=== PATIENT | female | born 1945 | race Caucasian/White ===

== ENCOUNTER 2025-03-29 13:33 | Outpatient (AMB) | payer MEDICARE, SELFPAY ==
--- NOTE | 2025-03-29 13:53 | A.PHYSOV ---
Vital Signs 03/29/25 13:55 Height 5 ft 8 in Weight 152 lb BMI 23.1 Intake Visit Reasons: NPV Tammie ref-right hip Intake Note: Patient is a 79year old female here for new patient visit. Patient was referred with history of partial right hip replacement. Patient is having hip pain and sciatica. Yard Switch Operator Required: No Allergies ciprofloxacin Allergy (Unknown, Verified 03/29/25 13:53) Unknown dexamethasone Allergy (Unknown, Verified 03/29/25 13:53) Swelling rivaroxaban (From Xarelto) Allergy (Unknown, Verified 03/29/25 13:53) blood in urine Sulfa (Sulfonamide Antibiotics) Allergy (Unknown, Verified 03/29/25 13:53) Unknown HPI Comments Details: History of Present Illness The patient is a 79 year old female presenting for evaluation of chronic right-sided pain. She has a history of a traumatic right hip fracture about seven years ago (approximately February 2018), for which she underwent a partial hip replacement. Despite the surgery and subsequent physical therapy, which she last attended a couple of years ago, the pain has not improved. The patient describes the pain as originating in her right buttock area and radiating down the leg, leading her to suspect sciatica. The pain intensity varies, but can be severe, and at times she feels as if a bone is touching a nerve. For pain management, she has used ice, Tylenol, and previously ibuprofen, but stopped ibuprofen due to being on Plavix. She has a prescription for tramadol but expressed hesitation about taking a narcotic medication. Her relevant medical history includes back issues diagnosed years ago, including a bulging disc and arthritis. She was previously seen at Orthopedics where it was determined that her hip was not the source of her pain. Following her hip surgery, she had a few follow-up appointments but was lost to follow-up after her surgeon left the practice. I reviewed the referring provider's no prior to consultation. Pain Description - Location: The pain is located in the right buttock area. - Radiation: The pain radiates down her right leg. - Quality: She describes the sensation at times as feeling like the bone is touching the nerve. - Severity: Pain is variable; it was rated as good on the day of the visit, but at other times it is severe and not relieved by anything. - Exacerbating Factors: Pain is reproduced by bending forward and lifting her right thigh. - Relieving Factors: She uses ice and Tylenol for relief. - Associated Symptoms: She reports that the muscles in her legs are tender to the touch. Results - Imaging: Previous hip x-rays performed by a sports leadership instructor were noted to be unremarkable for a hip source of pain. - Past imaging of the back from years ago showed a bulging disc and arthritis. [facility] Surgical History Hx of tonsillectomy History of hip surgery Social History Alcohol intake: current Alcohol intake frequency: does not drink Patient Tobacco Use Status: Former Tobacco user Review of Systems Narrative Review of Systems - Musculoskeletal: Reports pain in the right buttock that radiates down the right leg, as well as tenderness in her leg muscles. - Denies current back pain at rest or groin pain. - Neurological: Reports symptoms consistent with sciatica. - Psychiatric: Reports anxiety regarding undergoing an MRI. Physical Exam Exam Exam: Physical Exam - General: Patient is alert and oriented. - Musculoskeletal: Significant muscle atrophy is visible in the right hip and buttock area. - A surgical scar is present on the right hip. - There is no pain to palpation of the buttock itself. - Lumbar spine flexion elicits pain in the right buttock, while extension does not. - Active right hip flexion reproduces pain in the right hip area. - Neurological: Straight leg raise is positive on the right, causing tension behind the knee. - Sensation to light touch is symmetric in both legs. Vital Signs: BMI result Body Mass Index 23.1 Assessment & Plan Assessment & Plan (1) Lumbar radiculopathy: Code(s): M54.16 - Radiculopathy, lumbar region Category: Medical (2) Lumbar spondylosis: Code(s): M47.816 - Spondylosis without myelopathy or radiculopathy, lumbar region Category: Medical Plan Pain Management - Affect: The patient is functioning but experiences periods of severe pain. - Analgesia: She uses ice and Tylenol. - She has a prescription for tramadol but is hesitant to use it. - She cannot take ibuprofen because she is on Plavix. - Her pain level on the day of the visit was good. - Activities of Daily Living: The patient reports she is functioning despite the pain. - Aberrant Drug Related Behaviors: She expressed concern about taking tramadol because it is a narcotic, showing appropriate caution. Plan Patient was informed and verbally consented to the use of an ambient scribe for clinic note documentation during this visit. 1. Right-Sided Lower Extremity Pain, Suspected Radiculopathy The patient's symptoms are consistent with lumbar radiculopathy, given the pain radiates down her leg and is exacerbated by lumbar flexion. An x-ray of the lumbar spine will be obtained to serve as a prerequisite for an MRI. A lumbar MRI will be ordered to visualize the nerves and discs to confirm a pinched nerve. Potential treatment options discussed included physical therapy, career coach, gabapentin, and epidural steroid injections, noting that certain injections are possible despite her use of Plavix. A follow-up appointment will be scheduled after the imaging is completed to review results and discuss the treatment plan. Patient is requesting MRI of the severity of her pain. 2. Anxiety Related To Medical Procedures The patient expressed anxiety about undergoing an MRI. To accommodate this, an open MRI at [facility] will be ordered. Ativan 1 mg will be prescribed to be taken one hour prior to the procedure, with the instruction that she will need a ride. Discussion Notes I explained to the patient that her symptoms of pain radiating down her leg are more indicative of a pinched nerve in her back (radiculopathy) rather than an issue with her hip replacement. I recommended we proceed with a lumbar spine X-ray and an MRI to get a complete picture of the nerves and discs, which will help confirm the diagnosis and guide treatment. To address her expressed anxiety about the MRI, I recommended an open MRI scanner and prescribed Ativan 1mg for her to take prior to the scan, emphasizing the need to have a driver/merchandiser. We discussed potential treatments following the imaging, including physical therapy, medications like gabapentin, and injections. I reassured her that certain types of injections can be performed safely while she continues to take Plavix. The plan is for her to obtain the X-ray, after which we will order the MRI, and then she will follow up to review the results and decide on the best course of action. Patient Instructions - Please go to [facility]'s radiology department to get an X-ray of your lower back. You can walk in for this service; carry the order I provided you. - An order for an open MRI of your back will be sent to [facility]. They will contact you to schedule this appointment after it is approved by your insurance. - I have sent a prescription for Ativan 1 mg to your pharmacy. If you feel anxious before the MRI, you can take one pill one hour before the appointment. If you take this medication, you must have someone drive you to and from the appointment. - Once we have the results from your imaging, our office will contact you to schedule a follow-up visit to discuss the findings and create a treatment plan. Orders: Orders MR lumbar spine wo con Today M51.16 - Intervertebral disc disorders with radiculopathy, lumbar region XR lumbar spine 4V min Today M54.9 - Dorsalgia, unspecified Medications: New lorazepam (Ativan) 1 po, 1 hour prior to MRI 1 mg PO DAILY PRN 1 tab 0RF anxiety 1 day M47.816 - Spondylosis without myelopathy or radiculopathy, lumbar region, M54.16 - Radiculopathy, lumbar region Coding Level of Care Code Tele New Pt Level 4 (28202) Diagnoses Lumbar radiculopathy M54.16 Lumbar spondylosis M47.816
[2025-03-29 13:55] VITALS: BMI 23.1
--- OUTSIDE RECORDS SUMMARY | 2025-03-29 14:56 | XMS_ITS | Encounter Summary ---
Author Organization [facility] Address [address] [place] [address] Care Team Providers Care Drill Press Set Up Operator Name Role Phone Tiny Trujillo MD Primary Care Prov ider Encounter Details Date Type Department Care Team (Latest Contact Info) Description 03/29/2025 2:56 PM EST Hospital Encounter [facility] Xray [address] [place] [address] Dorsalgia, unspecified Social History Tobacco Use Types Packs/Day Years Used Date Smoking Tobacco: Former Cigarettes 0 Q uit: 04/13/1973 Smokeless Tobacco: Never Alcohol Use Standard Drinks/Week Comments Not Currently 0 (1 standard drink = 0.6 oz pur e alcohol) Comments No Sex and Gender Information Value Date Recorded Sex Assigned at Not on file Legal Sex Female 10:08 PM EST Gender Identity Not on file Sexual Orientation Not on file documented as of this encounter Plan of Treatment Upcoming Encounters Date Type Department Care Team (Late st Contact Info) Description 07/05/2025 10:00 AM EDT Office Visit Adult Medicine [facility] [address] [place] [phone] Tiny Trujillo MD [address] [place] [address] 08/04/2025 1:40 PM EDT Appointment Radiology Department - [address] [phone] Pending Results Name Type Priority Associated Diagnoses Date /Time XR Lumbar Spine 4+ Views Imaging Routine Dorsalgia, unspecified 03/29/2025 3:23 PM EST Scheduled Orders Name Type Priority Associated Diagnoses Orde r Schedule XR Lumbar Spine 4+ Views Imaging Routine Dorsalgia, unspecified Once for 1 Occurrences starting 03/29/2025 until 03/29/2025 documented as of this encounter Visit Diagnoses Diagnosis Dorsalgia, unspecified documented in this encounter Care Teams Drill Press Set Up Operator Relationship Specialty Start Date End Date Tiny Trujillo MD [address] [place] [id number] PCP - General 01/06/1999 documented as of this encounter
--- OUTSIDE RECORDS SUMMARY | 2025-03-29 18:07 | XMS_ITS ---
Author Name [facility] Organization Unknown History of Medication Use Medication Directions Dispensed Refills Start Date End Date Stat us cephALEXin (KEFLEX) 500 mg capsule Take 1 capsule (500 mg total) by mouth 2 (two) times daily for 7 days. 09/02/2024 active dilTIAZem CD (CARDIZEM CD) 120 mg 24 hr capsule Take 1 capsule (120 mg total) by mouth daily. 08/30/2024 active rivaroxaban (XARELTO) 20 mg tablet Take 1 tablet (20 mg total) by mouth daily. 08/30/2024 active LORazepam (ATIVAN) 0.5 mg tablet Take 1 tablet (0.5 mg total) by mouth 2 (two) times daily as needed. 07/19/2024 active SYNTHROID 137 mcg tablet Take 1 tablet (137 mcg total) by mouth daily. 07/18/2024 active hydrocortisone (ANUSOL-HC) 2.5 % rectal cream Place rectally as needed. 06/02/2024 active vit B comp no.8-hurjb-N-biotin (NEPHRO-MACIE RX;DIMITRIS-MACIE RX) 1 mg-60 mg-300 mcg tablet Take 1 tablet by mouth. active Allergies Allergen Reaction Severity Comment Documented Date Source Statu s SULFAMETHOXAZOLE-TRIMETHOP RIM HIVES 09/02/2024 [facility] active DEXAMETHASONE HIVES 01/04/2021 [facility] activ e CIPROFLOXACIN HIVES [facility] Problems Problem Status Onset Date Problem Type Date of Resoluti on Source Dysuria active EncounterDiagnosisAct [facility] Encounters Encounter Type Encounter Reason Primary Diagnosis Location Date Ambulatory Dysuria Dysuria [facility] 09/03/19 25 Care Team Organization Name Specialty Phone Email Start Date End Da te [facility] SORIN SCHUMACHER Primary Care 09/02/2024
--- OUTSIDE RECORDS SUMMARY | 2025-03-29 18:07 | XMS_ITS | Clinical Summary ---
Author Organization [address] Address [address] [place] [phone] Care Team Providers Care Senior Cost Estimator Name Role Phone Tiny Trujillo MD Primary Care Prov ider Allergies Active Allergy Reactions Criticality Noted Date Comments Ciprofloxacin Hives High 09/02/2024 Dexamethasone Hives High 01/04/2021 Sulfamethoxazole-Trimethoprim Hives High 2024 Medications dilTIAZem CD (CARDIZEM CD) 120 mg 24 hr capsule Take 1 capsule (120 mg total) by mouth daily. 08/30/2024 Active SYNTHROID 137 mcg tablet Take 1 tablet (137 mcg total) by mouth daily. 07/18/2024 Active rivaroxaban (XARELTO) 20 mg tablet Take 1 tablet (20 mg total) by mouth daily. 08/30/2024 08/31/19 26 Active vit B comp no.7-yjpff-E-bi otin (NEPHRO-MACIE RX;DIMITRIS-MACIE RX) 1 mg-60 mg-300 mcg tablet Take 1 tablet by mouth. Active hydrocortisone (ANUSOL-HC) 2.5 % rectal cream Place rectally as needed. 06/02/2024 06/02/19 26 Active Family History Medical History Relation Name Comments Cancer Father at age of 68 Cancer Mother at age of 94 Relation Name Status Comments Father Mother Social History Tobacco Use Types Packs/Day Years Used Date Smoking Tobacco: Former Cigarettes Smokeless Tobacco: Former Tobacco Cessation:Counseling Given: Not Answered Alcohol Use Standard Drinks/Week Comments Not Currently 0 (1 standard drink = 0.6 oz pur e alcohol) Comments Unknown Sex and Gender Information Value Date Recorded Sex Assigned at Not on file Legal Sex Female 10:18 AM EDT Gender Identity Not on file Sexual Orientation Not on file Last Filed Vital Signs Vital Sign Reading Time Taken Comments Blood Pressure 146/75 09/02/2024 9:26 AM EDT Pulse 68 09/02/2024 9:26 AM EDT Temperature 36.6 C (97.8 F) 09/02/2024 9:26 AM EDT Respiratory Rate 16 09/02/2024 9:26 AM EDT Oxygen Saturation 97% 09/02/2024 9:26 AM EDT Inhaled Oxygen Concentration - - Weight 71.7 kg (158 lb) 09/02/2024 9:26 AM EDT Height 171.5 cm (5' 7.5 ) 09/02/2024 9:26 AM EDT Body Mass Index 24.38 09/02/2024 9:26 AM EDT Plan of Treatment Health Maintenance Due Date Last Done Comments HIV screening 10/20/1960 Hepatitis C screening 10/20/1965 Lipid disorder screening 1987 Diabetes screening 10/20/1992 Osteoporosis screening (bone density) 10/20/2012 RSV Immunization (1 - 1-dose 75+ series) 10/20/2022 Influenza vaccine 11/11/2024 02/08/2024, , 01/17/2022, Additional history exists Covid-19 vaccine series ( season) 2024 Tetanus adult (Td q 10,TDAP once) 12/24/2026 12/24/2016, 10/13/2014 Pneumococcal Vaccine (50+ years) Completed 03/17/2017, 07/04/2015 Shingles vaccine (Shingrix) Completed 09/11, 08/30/2021, 04/01/2021 Breast cancer screening Discontinued 07/29/2024, 07/29 Cervical cancer screening Discontinued Colon cancer screening, Colonoscopy Discontinued Meningococcal B Vaccine Aged Out No l onger eligible based on patient's age to complete this topic Meningococcal Vaccine Aged Out No karon mark anthony eligible based on patient's age to complete this topic Insurance [facility]GD Care Teams Senior Cost Estimator Relationship Specialty Start Date End Date Tiny Trujillo MD [address] [place] [address] [place] [address] PCP - General Internal Medicine 09/02/24
--- OUTSIDE RECORDS SUMMARY | 2025-03-29 18:08 | XMS_ITS | Clinical Summary ---
Author Organization [facility] [address] Address [address] [place] [address] Phone Care Team Providers Care Cigarette Vendor Name Role Phone Tiny Trujillo MD Primary Care Prov ider Allergies Active Allergy Reactions Criticality Noted Date Comments Ciprofloxacin-Hydrocortisone Hives Low 014 Dexamethasone Swelling 01/04/2021 Sulfa (Sulfonamide Antibiotics) Rash 06/12 Rivaroxaban 01/24/2025 Blood in urine Medications multivit-min/ir on/folic acid/K (ADULTS MULTIVITAMIN ORAL) Take by mouth. Activ e calcium 26/magnesium 15/zinc (CALCIUM-MAGNES IUM-ZINC COMPLEX ORAL) Take by mouth. A ctive LORazepam (ATIVAN) 0.5 mg tablet Take 1 tablet (0.5 mg total) by mouth 2 (two) times a day if needed for anxiety. Max Daily Amount: 1 mg 30 tablet 09/28/19 25 Active BIOTIN ORAL Take by mouth 1 (one) time each day. Active traMADoL (ULTRAM) 50 mg tablet Take 1 tablet (50 mg total) by mouth 3 (three) times a day if needed for moderate pain. Max Daily Amount: 150 mg 30 tablet 01/11/20 25 Active Additional Information Patient not taking.Reason: pt stopped, Reported on 02/27/2025 cholecalciferol , vitamin D3, (VITAMIN D3 ORAL) Take by mouth 1 (one) time each day. Active dilTIAZem CD (CARDIZEM CD) 120 mg 24 hr capsuleIndicati ons:Paroxysmal atrial fibrillation (CMS/HCC V24, CMS/HCC V28) Take 1 capsule (120 mg total) by mouth 1 (one) time each day. 90 capsule 3 01/26/20 25 Active clopidogreL (PLAVIX) 75 mg tablet Take 1 tablet (75 mg total) by mouth 1 (one) time each day. 90 each 3 03/03/20 25 026 Active aspirin 81 mg EC tablet Take 1 tablet (81 mg total) by mouth 1 (one) time each day. 03/03/20 25 Active levothyroxine (SYNTHROID, LEVOTHROID) 125 mcg tablet TAKE 1 TABLET BY MOUTH ONCE DAILY BEFORE BREAKFAST 100 tablet 2 03/22/20 25 Active levothyroxine (SYNTHROID, LEVOTHROID) 125 mcg tablet Take 1 tablet (125 mcg total) by mouth 1 (one) time each day before breakfast. 90 each 1 01/11/20 25 025 Discontinued Active Problems Problem Noted Date Diagnosed Date Coronary artery calcification 02/27/2025 Assessment & Plan (02/27/2025 12:52 PM EST): See plan above. Ideally, I would at least like to start baby aspirin not just for this but also in preparation for Watchman procedure-I have reached out to EP- awaiting callback. Gross hematuria 11/11/2024 Elevated blood pressure reading 08/30/2024 Pure hypercholesterolemia 08/30/2024 Assessment & Plan (02/27/2025 12:52 PM EST): See plan above. Orders: Lipid panel; Future New onset atrial fibrillation 08/24/2024 Assessment & Plan (02/27/2025 12:52 PM EST): Would like to initiate DAPT in preparation for Watchman procedure to make sure she tolerates it from a hematuria standpoint. Furthermore I have reached out to EP as above. Currently in sinus rhythm. Continue current diltiazem for rate control. 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 Cardiology [facility] [address] [facility] [address] [place] [phone] Coco Barber MD 02/27/2025 10:20 AM EST Office Visit [facility] Cardiology [facility] [address] [facility] [address] [place] [phone] Coco Barber MD Paroxysmal atrial fibrillation (CMS/HCC V24, CMS/HCC V28) (Primary Dx); Pure hypercholesterolemia ; Coronary artery calcification 02/24/2025 Telephone Adult Medicine [facility] [address] [place] [phone] Tiny Trujillo MD 02/16/2025 10:00 AM EST Consult Orthopedic Surgery - [place] [address] [facility] [address] [place] [phone] Laya Begum MD Right hip pain (Primary Dx); Sciatica of right side 02/08/2025 Results Follow-Up Adult Medicine [facility] [address] [place] [address] Tiny Trujillo MD 02/06/2025 Telephone Adult Medicine [facility] [address] [place] [phone] Davis Edwards RN 01/27/[address] [facility] Cardiology [facility] [address] [facility] [address] [place] [phone] Brandon Ching MD 01/24/2025 4:[address] [facility] [address] [facility] [address] [place] [address] Brandon Ching MD Atrial fibrillation, unspecified type (CMS/HCC V24, CMS/HCC V28) (Primary Dx); Elevated blood pressure reading 01/10/2025 9:00 AM EDT Office Visit Adult Medicine [facility] [address] [place] [address] Tiny Trujillo MD Hypothyroidism, unspecified type (Primary Dx); Other polyneuropathy; Sprain of sacroiliac ligament, subsequent encounter; Vitamin D deficiency; Pure hypercholesterolemia ; Right hip pain from Last 3 Months Immunizations Immunization Administration Dates Next Due H1N1 Inj Preservative Free 01/26/2009 Influenza trivalent, 0.5mL ( Fluad) 65yo and older 02/08/2024,01/29/2023,01/17/2022,01/13,01/25/2020,01/19/2018,02/17/2017 ,01/15/2016,01/13/2014,02/25/2013,04/13,12/31/2010 Influenza, Unspecified 01/31/2019 PPD Test 11/21/2009 Pneumococcal conjugate 13 va lent (Prevnar 13, PCV13) 2mo and older 03/17/2017 Pneumococcal polysaccharide 23 valent (Pneumovax 23) 2yo and older 07/04/2015 Tdap Tetanus diptheria acell ular pertussis (Boostrix; Adacel) 7yo and older 12/24/2016,10/13/2014 Zoster Live 09/04/2009 Zoster recombinant (Shingrix ) 19yo and older 08/30/2021,04/01/2021 Surgical History Surgery Date Site/Laterality Comments COLONOSCOPY 06/2006 PROCEDURE: HISTORICAL COLONOSCOPY TONSILLECTOMY ADENOIDECTOMY, BILATERAL MYRINGOTOMY AND TUBES PROCEDURE: DC TONSILLECTOMY & ADENOIDECTOMY <AGE 14 OTHER SURGICAL HISTORY 2019 PROCEDURE: DC ARTHRP ACETBLR/PROX FEM PROSTC AGRFT/ALGRFT; COMMENT: right partial hip replacement COLONOSCOPY 01/16/2022 PROCEDURE: HISTORICAL COLONOSCOPY; COMMENT: diverticulosis Medical History Medical History Date Comments Depressive disorder, not els ewhere classified 07/07/2006 DX:Depressive disorder, not elsewhere classified Family History Medical History Relation Name Comments Other: cancer,other Aunt 1 maternal aunt; - age 70 ? cause Other: heart disease Aunt 2 paterna l aunt Hypertension Aunt 3 paternal aunt; in her 80s Other: MVA Brother 1 at age 24 Other: cancer other Father Colon ca ncer with mets; age 67 Other: Other Maternal Grandfather - age 75 ? cause Other: heart disease Maternal Grandmother at age 89 Uterine cancer Mother lung cancer i n her 90s; at 93 Other: heart attack Paternal Grandfather at age 50 Diabetes Paternal Grandmother ag e 89; [place] amp Other: heart disease Uncle 1 in his 80s Other: cancer,other Uncle 2 paternal uncle; in his 60s; Efren Breast cancer Neg Hx Relation Name Status Comments Aunt 1 Aunt 2 Aunt 3 Brother 1 Brother 2 car accident Father Maternal Grandfather Maternal Grandmother Mother Paternal Grandfather Paternal Grandmother Sister Alive Uncle 1 Uncle 2 Social History Tobacco Use Types Packs/Day Years Used Date Smoking Tobacco: Former Cigarettes 0 Q uit: 04/13/1973 Smokeless Tobacco: Never Tobacco Cessation:Counseling Given: Not Answered Alcohol Use Standard Drinks/Week Comments Not Currently 0 (1 standard drink = 0.6 oz pur e alcohol) Comments No Sex and Gender Information Value Date Recorded Sex Assigned at Not on file Legal Sex Female 10:08 PM EST Gender Identity Not on file Sexual Orientation Not on file Obstetrics History Para Term AB IAB SAB Ectopic Multiple Livin g Live Births 3 3 3 3 Date Outcome GA Total Labor Labor/2nd/3rd Weight Sex Type Anes PTL Raina A1 A5 Name Clin Term Term Term Last Filed Vital Signs Vital Sign Reading Time Taken Comments Blood Pressure 130/72 02/27/2025 10:07 AM EST Pulse 78 02/27/2025 10:07 AM EST Temperature 36.7 C (98.1 F) 09/27/2024 8:33 AM EDT Respiratory Rate - - Oxygen Saturation 99% 02/27/2025 10:07 AM EST Inhaled Oxygen Concentration - - Weight 71.2 kg (157 lb) 02/27/2025 10:07 AM EST Height 172.7 cm (5' 8 ) 02/27/2025 10:07 AM EST Body Mass Index 23.87 02/27/2025 10:07 AM EST Plan of Treatment Upcoming Encounters Date Type Department Care Team (Late st Contact Info) Description 07/05/2025 10:00 AM EDT Office Visit Adult Medicine - [place] [address] [place] [address] Tiny Trujillo MD [address] [place] [address] 08/04/2025 1:40 PM EDT Appointment Radiology Department - [address] [phone] Health Maintenance Due Date Last Done Comments Cervical Cancer Screening: Pap Smear 12/31/2018 12/31/2017 Falls Risk Assessment 03/22/2022 Medicare Annual Wellness Visit 03/22/2022 Social Influencers of Health Screening 03/22/2022 RSV Immunization Adult Patients (1 - 1-dose 75+ series) 10/20/2022 Depression Screening 04/13/2024 COVID-19 Vaccine ( season) 2024 02/22/2021, 06/06/2020, 05/15/2020 Hypertension/CHF/CAD Annual BMP Blood Test 03/01/2025 07/18/1998 DTaP,Tdap,and Td Vaccines (3 - Td or Tdap) 12/24/2026 12/24/2016, 10/13/2014 Colorectal Cancer Screening: Colonoscopy 01/16/2027 01/16/2022 Cholesterol Screening (Lipid Panel) 01/10/2030 01/10/2025, 03/29/2024, 09/30/2023, Additional history exists Osteoporosis Screening (Bone Density Screening) 09/19/2031 09/18/2021, 10/12/2018 Hepatitis C Screening Completed 01/02/2017 Pneumococcal Vaccine: 50+ Years Completed 03/17/2017, 07/04/2015 Zoster Vaccines Completed 09/24/2021, 08/12, 04/01/2021, Additional history exists Breast Cancer Screening Discontinued 07/30/19, 07/11/2023, 06/16/2022, Additional history exists Influenza Vaccine Completed 02/16/2025, , 01/29/2023, Additional history exists HIB Vaccines Aged Out No longer eligi ble based on patient's age to complete this topic HPV Vaccines Aged Out No longer eligi ble based on patient's age to complete this topic Hepatitis A Vaccines Aged Out No long er eligible based on patient's age to complete this topic Hepatitis B Vaccines Aged Out No long er eligible based on patient's age to complete this topic IPV Vaccines Aged Out No longer eligi ble based on patient's age to complete this topic MMR Vaccines Aged Out No longer eligi ble based on patient's age to complete this topic Meningococcal ACWY Vaccine Aged Out N o longer eligible based on patient's age to complete this topic Meningococcal B Vaccine Aged Out No l onger eligible based on patient's age to complete this topic RSV Immunization Patients Under 20 months Aged Out No longer eligible based on patient's age to complete this topic Varicella Vaccines Aged Out No longer eligible based on patient's age to complete this topic Procedures Procedure Name Priority Date/Time Associated Diagnosis Comments XR HIP 2-3 VIEWS RIGHT Routine 10:28 AM EST Right hip pain LEVY URINE CULTURE TUBE Routine 02/07/2025 12:57 PM EDT Acute cystitis without hematuria URINALYSIS WITH REFLEX MICROSCOPIC AND CULTURE Routine 02/07/2025 12:57 PM EDT Acute cystitis without hematuria URINALYSIS WITH REFLEX MICROSCOPIC AND CULTURE Routine 02/07/2025 12:57 PM EDT Acute cystitis without hematuria CULTURE URINE Routine 02/07/2025 12:57 PM EDT Acute cystitis without hematuria ECG 12-LEAD Routine 01/24/2025 3:53 PM EDT Atrial fibrillation, unspecified type (CMS/HCC V24, CMS/HCC V28) TRIIODOTHYRONINE FREE Routine 01/10/2025 10:17 AM EDT Hypothyroidism, unspecified type FREE THYROXINE WITH REFLEX TO FREE TRIIODOTHYRONINE Routine 01/10/2025 10:17 AM EDT Hypothyroidism, unspecified type THYROID STIMULATING HORMONE WITH REFLEX TO FREE T4 AND FREE T3 Routine 01/10/2025 10:17 AM EDT Hypothyroidism, unspecified type LIPID PANEL WITH REFLEX TO DIRECT LDL Routine 01/10/2025 10:17 AM EDT Pure hypercholesterolemia VITAMIN B12 Routine 01/10/2025 10:17 AM EDT Other polyneuropathy VITAMIN D 25 HYDROXY Routine 01/10/2025 10:17 AM EDT Vitamin D deficiency MAMMO DIGITAL SCREENING W TREY BILAT Routine 07/29/2024 1:37 PM EDT Encounter for screening mammogram for breast cancer COLONOSCOPY Routine 01/16/2022 DXA BONE DENSITY STUDY 1+ SITS AXIAL SKEL Routine 09/18/2021 11:21 AM EDT Encounter for screening for osteoporosis PAP SMEAR Routine 12/31/2017 HEPATITIS C SCREENING Routine 01/02/2017 ANNUAL BMP BLOOD TEST Routine 07/18/1998 from Last 3 Months or Most Recently Relevant to Health Maintenance Results * XR Hip 2-3 Views Right (02/16/2025 10:28 AM EST) Anatomical Region Laterality Modality Lower Extremities, Hip Right Computed Radiography 02/19/2025 8:46 PM EST Impressions 02/19/2025 8:49 PM EST Intact right hip prosthesis. No acute fracture detected. -------- FINAL REPORT -------- Dictated By: Elysia Orozco Dictated Date: 02/19/2025 20:46 ET Assigned Physician: Elysia Orozco Reviewed and Electronically Signed By: Elysia Orozco Signed Date: 02/19/2025 20:49 ET Workstation ID: [id number] Transcribed By: Self Edit Transcribed Date: 02/19/2025 20:46 ET Narrative 02/19/2025 8:49 PM EST EXAM: Pelvic and right hip x-ray. HISTORY: Right hip pain. COMPARISON: CT pelvis 05/15/2022 VIEWS: AP view of the pelvis and AP and frog-lateral views of the right hip performed. FINDINGS: Intact right hip prosthesis in place. No periprosthetic lucency to indicate loosening or infection. Femoral head component is centered in the acetabular cup. No acute fracture detected. Pelvic ring is intact. Procedure Note Elysia Orozco MD - 02/19/2025 EXAM: Pelvic and right hip x-ray. HISTORY: Right hip pain. COMPARISON: CT pelvis 05/15/2022 VIEWS: AP view of the pelvis and AP and frog-lateral views of the righthip performed. FINDINGS: Intact right hip prosthesis in place. No periprosthetic lucency toindicate loosening or infection. Femoral head component is centered in theacetabular cup. No acute fracture detected. Pelvic ring is intact. IMPRESSION: Intact right hip prosthesis. No acute fracture detected. -------- FINAL REPORT -------- Dictated By: Elysia Orozco Dictated Date: 02/19/2025 20:46 ET Assigned Physician: Elysia Orozco Reviewed and Electronically Signed By: Elysia Orozco Signed Date: 02/19/2025 20:49 ET Workstation ID: [id number] Transcribed By: Self Edit Transcribed Date: 02/19/2025 20:46 ET us Laya Begum MD IMG XR PROCEDURES Final Result * (ABNORMAL) Urinalysis with reflex microscopic and culture (02/07/2025 12:57 PM EDT) Specific [place]yer Urine 1.008 1.003 - 1.030 LAB URINALYSIS - AUTOMATED METHOD 02/07/2025 2:41 PM EDT [facility] pH, Urine 6.5 5.0 - 8.0 pH LAB URINALYSIS - AUTOMATED METHOD 02/07/2025 2:41 PM [facility] Leukocytes, Urine Large(A) Negative LAB URINALYSIS - AUTOMATED METHOD 02/07/2025 2:41 PM [facility] Nitrite, Urine Positive(A) Negative LAB URINALYSIS - AUTOMATED METHOD 02/07/2025 2:41 PM [facility] Protein, Urine Negative <=Trace mg/dL LAB URINALYSIS - AUTOMATED METHOD 02/07/2025 2:41 PM [facility] Glucose, Urine Negative Negative mg/dL LAB URINALYSIS - AUTOMATED METHOD 02/07/2025 2:41 PM [facility] Ketones, Urine Negative Negative mg/dL LAB URINALYSIS - AUTOMATED METHOD 02/07/2025 2:41 PM [facility] Urobilinogen , Urine 1.0 0.2 - 1.0 mg/dL LAB URINALYSIS - AUTOMATED METHOD 02/07/2025 2:41 PM [facility] Bilirubin, Urine Negative Negative LAB URINALYSIS - AUTOMATED METHOD 02/07/2025 2:41 PM [facility] Blood, Urine Negative Negative LAB URINALYSIS - AUTOMATED METHOD 02/07/2025 2:41 PM [facility] RBC, Urine 2 0 - 4 /HPF LAB URINALYSIS - AUTOMATED METHOD 02/07/2025 2:41 PM [facility] WBC, Urine 110.4(H) 0 - 4 /HPF LAB URINALYSIS - AUTOMATED METHOD 02/07/2025 2:41 PM [facility] Squamous Epithelial, Urine 1 0 - 60 /LPF LAB URINALYSIS - AUTOMATED METHOD 02/07/2025 2:41 PM [facility] Bacteria, Urine Few(A) Negative /HPF LAB URINALYSIS - AUTOMATED METHOD 02/07/2025 2:41 PM [facility] Hyaline Casts, Urine 1.2 0 - 3 /LPF LAB URINALYSIS - AUTOMATED METHOD 02/07/2025 2:41 PM EDT [facility] Urine Urine specimen obtained by clean catch procedure / Unknown Non-blood Collection / Unknown 02/07/2025 12:57 PM EDT 02/07/2025 12:57 PM EDT us Tiny Trujillo MD LAB URINE ORDERABL ES Final Result Performing Organization Address [facility]/ZIP Co de Phone Number [facility] [address] [place] [address], [place] [phone] * Levy urine culture tube (02/07/2025 12:57 PM EDT) Extra Tube Hold for add-ons. 02/07/2025 2:01 PM EDT [facility] Comment:Auto resulted. Urine Urine specimen obtained by clean catch procedure / Unknown Non-blood Collection / Unknown 02/07/2025 12:57 PM EDT 02/07/2025 12:57 PM EDT us Tiny Trujillo MD LAB URINE ORDERABL ES Final Result Performing Organization Address [facility]/ZIP Co de Phone Number [facility] [address] [place] [address], [place] [phone] * Culture urine (02/07/2025 12:57 PM EDT) Culture, Urine <10,000 CFU/mL gram negative bacilli, insignificant count, no further workup 02/08/2025 2:16 PM EDT [facility] Urine Urine specimen obtained by clean catch procedure / Unknown Non-blood Collection / Unknown 02/07/2025 12:57 PM EDT 02/07/2025 2:41 PM EDT us Tiny Trujillo MD LAB MICROBIOLOGY - GENERAL ORDERABLES Final Result Performing Organization Address [facility] Co de Phone Number [facility] [address] [place] [address], [place] [phone] * ECG 12 lead (01/24/2025 3:53 PM EDT) Ventricular Rate ECG 74 BPM GEMUSE Atrial Rate 74 BPM GEMUSE P-R Interval 134 ms GEMUSE QRS Duration 72 ms GEMUSE Q-T Interval 412 ms GEMUSE QTc 457 ms GEMUSE P Wave [place] 83 degrees GEMUSE R [place] 60 degrees GEMUSE T [place] 64 degrees GEMUSE ECG Interpretation Normal sinus rhythm Normal ECG When compared with ECG of 29-AUG-2024 11:15, No significant change was found Confirmed by OG CHING ([id number]) on 01/25/2025 11:52:31 AM GEMUSE 01/24/2025 3:53 PM EDT 01/25/2025 11:52 AM EDT Brandon Ching MD ECG ORDERABLES Final Resu lt Performing Organization Address [facility] de Phone Number AMNAUSE * (ABNORMAL) Thyroid stimulating hormone with reflex to free t4 and free t3 (01/10/2025 10:17 AM EDT) TSH 0.20(L) 0.40 - 4.00 mcIU/mL LAB CHEMISTRY METHOD 01/10/2025 1:11 PM EDT [facility] Blood Venous blood specimen / Unknown Venipuncture / Unknown 01/10/2025 10:17 AM EDT 01/10/2025 10:17 AM EDT Tiny Trujillo MD LAB BLOOD ORDERABL ES Final Result Performing Organization Address [facility] Co de Phone Number [facility] [address] [place] [address], [place] [phone] * Free thyroxine with reflex to free triiodothyronine (01/10/2025 10:17 AM EDT) Free T4 1.74 0.70 - 1.80 ng/dL LAB CHEMISTRY METHOD 01/10/2025 2:22 PM T [facility] Blood Venous blood specimen / Unknown Venipuncture / Unknown 01/10/2025 10:17 AM EDT 01/10/2025 10:17 AM EDT us Tiny Trujillo MD LAB BLOOD ORDERABL ES Final Result [facility] [address] [place] [address], [place] [phone] * (ABNORMAL) Lipid panel with reflex to direct LDL (01/10/2025 10:17 AM EDT) Pathologist [facility] Cholesterol 206(H) 0 - 200 mg/dL LAB CHEMISTRY METHOD 01/10/2025 12:29 PM [facility] Triglycerides 128 0 - 150 mg/dL LAB CHEMISTRY METHOD 01/10/2025 12:29 PM [facility] HDL 56 >=40 mg/dL LAB CHEMISTRY METHOD 01/10/2025 12:29 PM [facility] LDL Calculated 124(H) 0 - 100 mg/dL LAB CHEMISTRY METHOD 01/10/2025 12:29 PM T [facility] Comment:Estimated LDL Calcul ated using equation: Total cholesterol - HDL cholesterol - (Triglycerides/5) VLDL Cholesterol Keo 25.6 mg/dL LAB CHEMISTRY METHOD 01/10/2025 12:29 PM T [facility] Non HDL Chol. (LDL+VLDL) 150(H) <145 mg/dL LAB CHEMISTRY METHOD 01/10/2025 12:29 PM [facility] Chol/HDL Ratio 3.7 0.0 - 4.4 LAB CHEMISTRY METHOD 01/10/2025 12:29 PM EDT [facility] Blood Venous blood specimen / Unknown Venipuncture / Unknown 01/10/2025 10:17 AM EDT 01/10/2025 10:17 AM EDT Tiny Trujillo MD LAB BLOOD ORDERABL ES Final Result Performing Organization Address City/[facility]/ZIP Co de Phone Number [facility] [address] [place] [address], [place] [phone] * Vitamin D 25 hydroxy (01/10/2025 10:17 AM EDT) Vit D, 25-Hydroxy 42.2 30.0 - 80.0 ng/mL LAB CHEMISTRY METHOD 01/10/2025 1:10 PM EDT [facility] Blood Venous blood specimen / Unknown Venipuncture / Unknown 01/10/2025 10:17 AM EDT 01/10/2025 10:17 AM EDT Tiny Trujillo MD LAB BLOOD ORDERABL ES Final Result Performing Organization Address [facility]/ZIP Co de Phone Number [facility] [address] [place] [address], [place] [phone] * Triiodothyronine free (01/10/2025 10:17 AM EDT) T3, Free 341 230 - 420 pcg/dL LAB CHEMISTRY METHOD 01/10/2025 3:14 PM EDT [facility] Blood Venous blood specimen / Unknown Venipuncture / Unknown 01/10/2025 10:17 AM EDT 01/10/2025 10:17 AM EDT Tiny Trujillo MD LAB BLOOD ORDERABL ES Final Result Performing Organization Address City/[facility]/ZIP Co de Phone Number [facility] [address] [place] [address], [place] [phone] * (ABNORMAL) Vitamin B12 (01/10/2025 10:17 AM EDT) Vitamin B-12 1,262(H) 250 - 900 pcg/mL LAB CHEMISTRY METHOD 01/10/2025 12:29 PM EDT [facility] ([facility] Blood Venous blood specimen / Unknown Venipuncture / Unknown 01/10/2025 10:17 AM EDT 01/10/2025 10:17 AM EDT us Tiny Trujillo MD LAB BLOOD ORDERABL ES Final Result [facility] ([facility]) [facility] [address] [place] [address], [place] [phone] * MG Mammo Digital Screening w Trey bilat (07/29/2024 1:37 PM EDT) Anatomical Region Laterality Modality Breast Bilateral Mammography 07/29/2024 7:37 PM EDT Impressions 07/29/2024 7:40 PM EDT BILATERAL BREASTS: Negative, no evidence of malignancy. Normal interval follow- up is recommended in 12 months. BREAST DENSITY: C - The breasts are heterogeneously dense which may obscure small masses. BI-RADS CATEGORY: 1 - NEGATIVE RECOMMENDATION: Screening bilateral mammogram is recommended in 1 year. Mammo Location: [facility], [address] [place] [address], [phone], . -------- FINAL REPORT -------- Dictated By: Ally Traylor Dictated Date: 07/29/2024 19:37 ET Assigned Physician: Ally Traylor Reviewed and Electronically Signed By: Ally Traylor Signed Date: 07/29/2024 19:40 ET Workstation ID: [id number] Transcribed By: Self Edit Transcribed Date: 07/29/2024 19:37 ET Narrative 07/29/2024 7:40 PM EDT STUDY: Bilateral screening mammography with tomosynthesis and CAD TECHNIQUE: Bilateral full-field digital screening mammography is obtained and read in conjunction with computer-aided detection. Tomosynthesis as well as 2-D C view imaging were obtained. COMPARISON: Comparison made to multiple prior, most recent July 11, 2023, and most remote September 30, 2014. BILATERAL BREASTS: No significant masses, suspicious calcifications or other abnormalities are seen in either breast. Procedure Note Ally Traylor MD - 07/29/2024 STUDY: Bilateral screening mammography with tomosynthesis and CAD TECHNIQUE: Bilateral full-field digital screening mammography is obtainedand read in conjunction with computer-aided detection. Tomosynthesis aswell as 2-D C view imaging were obtained. COMPARISON: Comparison made to multiple prior, most recent July 11, 2023,and most remote September 30, 2014. BILATERAL BREASTS: No significant masses, suspicious calcifications orother abnormalities are seen in either breast. IMPRESSION: BILATERAL BREASTS: Negative, no evidence of malignancy. Normal intervalfollow-up is recommended in 12 months. BREAST DENSITY: C - The breasts are heterogeneously dense which mayobscure small masses. BI-RADS CATEGORY: 1 - NEGATIVE RECOMMENDATION: Screening bilateral mammogram is recommended in 1 year. Mammo Location: [facility], [address] [place] [address], [id number], . -------- FINAL REPORT -------- Dictated By: Ally Traylor Dictated Date: 07/29/2024 19:37 ET Assigned Physician: Ally Traylor Reviewed and Electronically Signed By: Ally Traylor Signed Date: 07/29/2024 19:40 ET Workstation ID: [id number] Transcribed By: Self Edit Transcribed Date: 07/29/2024 19:37 ET us Tiny Trujillo MD IMG BI PROCEDURES Final Result * Hm Colonoscopy (01/16/2022) HM Colonoscopy abstracted, no interpretation Anatomical Region Laterality Modality Other us Historical Provider HEALTH MAINTENANCE Final Result * DXA BONE DENSITY STUDY 1+ SITS AXIAL SKEL (09/18/2021 11:21 AM EDT) Anatomical Region Laterality Modality Bone Densitometr y 07/16/2021 8:51 AM EDT Narrative 09/18/2021 4:49 PM EDT BONE DENSITY Lumbar Spine T-score is +0.2 (SD relative to 20-29 y/o adult) Z-score is +2.5 (SD relative to age matched peers) This is normal by criteria defined by the WHO. Left Hip T-score is -0.1 Z-score is +1.6 This is normal by criteria defined by the WHO. Comparison exam(s): no statistically significant change in the bone density of the hip and lumbar spine when compared to most recent bone density examination Confidence level is +/-95%. Impression: Based on the World Health Organization criteria, Price Salcido should be classified as having normal bone density. The [facility] Department of Internal Medicine recommends using National Osteoporosis Foundation (NOF) guidelines in treatment decisions related to osteoporosis. NOF guidelines suggest considering treatment for postmenopausal women and men aged 50 or older presenting with the following: History of hip or vertebral fracture. T-score less than or equal to -2.5 (DXA) at the femoral neck, total hip, or spine, after appropriate evaluation to exclude secondary causes. Low bone mass (T-score between -1.0 and -2.5 at the femoral neck or spine) AND a 10-year probability of a hip fracture greater than or equal to 3% OR a 10-year probability of a major osteoporosis-related fracture greater than or equal to 20% based on the [place]-adapted WHO algorithm Please note that all treatment decisions require clinical judgment and consideration of individual patient factors, including patient preferences, co-morbidities, previous drug use, risk factors not captured in the FRAX model (e.g., frailty, falls, vitamin D deficiency, increased bone turnover, interval significant decline in bone density) and possible under- or over-estimation of fracture risk by FRAX. Procedure Note Julia Null MD - 04/01/2022 BONE DENSITY Lumbar Spine T-score is +0.2 (SD relative to 20-29 y/o adult) Z-score is +2.5 (SD relative to age matched peers) This is normal by criteria defined by the WHO. Left Hip T-score is -0.1 Z-score is +1.6 This is normal by criteria defined by the WHO. Comparison exam(s): no statistically significant change in the bonedensity of the hip and lumbar spine when compared to most recent bonedensity examination Confidence level is +/-95%. Impression: Based on the World Health Organization criteria, Price Salcido shouldbe classified as having normal bone density. The [facility] Department of Internal Medicine recommendsusing National Osteoporosis Foundation (NOF) guidelines in treatmentdecisions related to osteoporosis. NOF guidelines suggest consideringtreatment for postmenopausal women and men aged 50 or older presentingwith the following: History of hip or vertebral fracture. T-score less than or equal to -2.5 (DXA) at the femoral neck, total hip,or spine, after appropriate evaluation to exclude secondary causes. Low bone mass (T-score between -1.0 and -2.5 at the femoral neck or spine)AND a 10-year probability of a hip fracture greater than or equal to 3% ORa 10-year probability of a major osteoporosis-related fracture greaterthan or equal to 20% based on the [place]-adapted WHO algorithm Please note that all treatment decisions require clinical judgment andconsideration of individual patient factors, including patientpreferences, co-morbidities, previous drug use, risk factors not capturedin the FRAX model (e.g., frailty, falls, vitamin D deficiency, increasedbone turnover, interval significant decline in bone density) and possibleunder- or over-estimation of fracture risk by FRAX. Marielena LYLE IMG DXA PROCEDURES Final R esult * Pap Smear (12/31/2017) Pap smear abstracted, no interpretation Historical Provider HEALTH MAINTENANCE Final Result * Hepatitis C Screening (01/02/2017) Pathologist [facility] Hepatitis C Screening abstracted Historical Provider HEALTH MAINTENANCE Final Result * Annual BMP Blood Test (07/18/1998) Pathologist [facility] Annual BMP Blood Test abstracted Historical Provider HEALTH MAINTENANCE Final Result from Last 3 Months or Most Recently Relevant to Health Maintenance Insurance [employer] MED[employer]ARE Care Teams Cigarette Vendor Relationship Specialty Start Date End Date Tiny Trujillo MD [address] [place] [id number] PCP - General 01/06/1999
--- OUTSIDE RECORDS SUMMARY | 2025-03-29 18:08 | XMS_ITS | Encounter Summary ---
Author Organization [facility] Address [address] [place] [address] Care Team Providers Care Manager Laundry Name Role Phone Tiny Trujillo MD Primary Care Prov ider Encounter Details Date Type Department Care Team (Late st Contact Info) Description 02/08/2025 Results Follow-Up Adult Medicine - [address] [phone] Tiny Trujillo MD [address] [place] [phone] Social History Tobacco Use Types Packs/Day Years [...] on file documented as of this encounter Ordered Prescriptions Prescription Sig Dispense Quantity Refills Last Filled Start Date End Date nitrofurantoin, macrocrystal-monoh ydrate, (MACROBID) 100 mg capsule Take 1 capsule (100 mg total) by mouth 2 (two) times a day for 10 days. 20 each 02/08/2025 documented in this encounter Plan of Treatment Upcoming Encounters Date Type Department Care Team (Late st Contact Info) Description 07/05/2025 10:00 AM EDT Office Visit Adult Medicine - [place] [address] [place] [address] Tiny Trujillo MD [address] [place] [address] 08/04/2025 1:40 PM EDT Appointment Radiology Department - [address] [phone] documented as of this encounter Visit Diagnoses Not on filedocumented in this encounter Care Teams Manager Laundry Relationship Specialty Start Date End Date Tiny Trujillo MD [address] [place] [address] PCP - General 01/06/1999 documented as of this encounter
--- OUTSIDE RECORDS SUMMARY | 2025-03-29 18:08 | XMS_ITS | Encounter Summary ---
Author Organization [facility] Address [address] [place] [address] Care Team Providers Care Marketing Manager Health Communications Name Role Phone Tiny Trujillo MD Primary Care Prov ider Reason for Visit * Reason Onset Date Comments Medication Problem 02/24/2025 Encounter Details Date Type Department Care Team (Late st Contact Info) Description 02/24/2025 Telephone Adult Medicine - [place] [address] [place] [phone] Tiny Trujillo MD [address] [place] [address] Social History Tobacco Use Types Packs/Day Years [...] on file documented as of this encounter Progress Notes * Tiny Trujillo MD - 02/24/2025 11:52 AM EST She should be fine this is not like she is taking it every day and on contract she only takes it asneeded * Maritza Kurt - 02/24/2025 10:47 AM EST Medication Problem: What is the name of the medication patient is having a problem with?: lorazepam and tramadol What is the problem?: There is an increased risk of respiratory depression, sedation and cognitive impairment. Can these be switched or de-prescribed? Who is calling about the problem? : A pharmacist: Pharmacy: [facility] Pharmacist Name: [facility] Is this a NEW medication?: no How long has the patient been taking this medication? N/a Who prescribed this medication for the patient? pcp Who is patients PCP?: Tiny Trujillo MD Payor: [employer]ARE / Plan: [employer] MEDICARE COMPLETE / Product Type: *No Product type* / documented in this encounter Plan of Treatment Upcoming Encounters Date Type Department Care Team (Late st Contact Info) Description 07/05/2025 10:00 AM EDT Office Visit Adult Medicine - [place] [address] [place] [phone] Tiny Trujillo MD [address] [place] [address] 08/04/2025 1:40 PM EDT Appointment Radiology Department - [address] [phone] documented as of this encounter Visit Diagnoses Not on filedocumented in this encounter Care Teams Marketing Manager Health Communications Relationship Specialty Start Date End Date Tiny Trujillo MD [address] [place] [address] PCP - General 01/06/1999 documented as of this encounter
== END 2025-03-29 15:28 | disposition home or self-care (01) ==
LOC: HO.HPHYS 13:34
PROVIDERS: PCP Internal Medicine; Visit Provider Physician Assistant
DX: M54.16 Radiculopathy, lumbar region (principal); M47.816 Spondylosis without myelopathy or radiculopathy, lumbar region
CPT/HCPCS: 99214

== ENCOUNTER → 2025-03-29 13:33 | Outpatient (BNVA) | payer MEDICARE, SELFPAY | PROVIDERS: PCP Internal Medicine; Visit Provider Physician Assistant | DX: M54.16 Radiculopathy, lumbar region (principal); M47.816 Spondylosis without myelopathy or radiculopathy, lumbar region; Z96.641 Presence of right artificial hip joint | CPT/HCPCS: 99212 ==